=== PATIENT | female | born 1965 | race Caucasian/White ===

== ENCOUNTER 2018-03-01 19:54 | Emergency (ER) | payer BC ==
[~2018-03-01] VITALS: Ht 162.6 cm; Wt 74.8 kg
[~2018-03-01 19:54] MED LIST: BISA-155 PO; ONDA8TAB9 PO; POLY119P2 PO
[2018-03-01] MEDS ORDERED: CLONAZEPAM TAB 1MG PO (20:17)
[2018-03-01] MEDS ORDERED: MONTELUKAST TAB 10MG (20:17)
[2018-03-01] MEDS ORDERED: AMLODIPINE BESYLATE 10 MG PO (20:17)
[2018-03-01] MEDS ORDERED: LINZESS CAP 145MCG (20:17)
[2018-03-01] MEDS ORDERED: Lisinopril 10 Mg Tablet PO (20:18)
[2018-03-01] MEDS ORDERED: [UNRECOGNIZED DRUG - OTHER] SL (20:18)
[2018-03-01 20:31] LABS: BASOPHILS % (AUTO) 0.2 % (0-1); EOSINOPHILS # (AUTO) 0.2 X10'3 (0-0.9); EOSINOPHILS % (AUTO) 1.5 % (0-6); HEMATOCRIT 51.4 % (35.0-45.0); HEMOGLOBIN 17.8 g/dl (12.0-16.0); LYMPHOCYTES # (AUTO) 2.6 X10'3 (1.1-4.8); LYMPHOCYTES % (AUTO) 17.2 % (21-51); MEAN CORPUSCULAR HEMOGLOBIN 31.5 PG (27.0-31.0); MEAN CORPUSCULAR HGB CONC 34.5 % (33.0-36.5); MEAN CORPUSCULAR VOLUME 91.1 FL (78-98); MEAN PLATELET VOLUME 8.3 FL (7.4-10.4); MONOCYTES % (AUTO) 6.6 % (2-12); NEUTROPHILS # (AUTO) 11.2 X10'3 (1.8-7.7); NEUTROPHILS % (AUTO) 74.5 % (42-75); PLATELET COUNT 275 X10'3 (140-440); RED BLOOD COUNT 5.64 X10'6 (4.20-5.60); RED CELL DISTRIBUTION WIDTH 13.2 % (11.5-14.5)
[2018-03-01] MEDS ORDERED: ondansetron/PF 4mg/2ml inj IV ONE (20:40)
[2018-03-01 20:53] LABS: ALANINE AMINOTRANSFERASE 48 U/L (12-78); ALBUMIN 3.8 G/DL (3.4-5.0); ALBUMIN/GLOBULIN RATIO 1.1 (1.1-1.5); ALKALINE PHOSPHATASE 83 IU/L (46-116); ANION GAP 10 (8-16); ASPARTATE AMINO TRANSFERASE 27 U/L (10-37); BILIRUBIN,TOTAL 0.4 MG/DL (0.1-1.0); BLOOD UREA NITROGEN 5 MG/DL (7-18); BUN/CREATININE RATIO 5.3 (6.6-38.0); CALCIUM 9.3 MG/DL (8.5-10.1); CHLORIDE 101 MMOL/L (99-107); CREATININE 0.94 MG/DL (0.40-0.90); GLUCOSE 132 MG/DL (70-104); POTASSIUM 3.6 MMOL/L (3.5-5.1); SODIUM 137 MMOL/L (135-145); TOTAL CARBON DIOXIDE 25.8 MMOL/L (24-32); TOTAL PROTEIN 7.2 G/DL (6.4-8.2); eGFR 62 ML/MIN
[2018-03-01 21:02] LABS: PARTIAL THROMBOPLASTIN TIME 27 SECONDS (22-32); PROTHROMBIN TIME 10.6 SECONDS (9.0-12.0)
[2018-03-01] MEDS ORDERED: ketamine 10mg/ml 20ml inj 0 MG in normal saline 100ml IV soln 100 ML IV ONE (21:05)
[2018-03-01] MEDS ORDERED: ketamine 50 mg/ml 10ml vial IV ONE (21:15)
[2018-03-01] MEDS ORDERED: LORazepam 2 mg/ml vial IV ONE (22:30)
[2018-03-01] MEDS ORDERED: LIDOcaine 1% 30ml preserv. free vial IJ ONE (22:45)
[2018-03-01] MEDS ORDERED: fentaNYL/PF 50MCG/1 ML 2ML syringe IV STA (23:13)
[2018-03-02 00:34] LABS: APPEARANCE,CSF CLEAR; CSF RBC 2 /CU MM (0); CSF SUPERNATANT COLOR COLORLESS; CSF VOLUME 8 ML; TUBE# COUNTED 1
[2018-03-02 00:37] LABS: CSF WBC CT 0 /CU MM (0-5)
[2018-03-02 00:38] LABS: APPEARANCE,CSF CLEAR; CSF RBC 0 /CU MM (0); CSF SUPERNATANT COLOR COLORLESS; CSF VOLUME 8 ML; CSF WBC CT 0 /CU MM (0-5); TUBE# COUNTED 4
[2018-03-02 00:45] LABS: GLUCOSE,CSF 68 MG/DL (40-75)
[2018-03-02 00:46] LABS: TOTAL PROTEIN,CSF 40.3 MG/DL (15-45)
[2018-03-02] MEDS ORDERED: proCHLORperazine 10 MG/2 ml inj IV ONE (01:55)
[2018-03-02 02:20] VITALS: BP 121/83
== END 2018-03-02 02:22 | disposition home or self-care (01) ==
LOC: ER 19:55
DX: R51 Headache (principal); R07.9 Chest pain, unspecified; D72.829 Elevated white blood cell count, unspecified; F41.9 Anxiety disorder, unspecified; I10 Essential (primary) hypertension; Z79.899 Other long term (current) drug therapy
CPT/HCPCS: 36415; 70450; 71045; 80053; 82945; 84157; 84484; 85025; 85610; 85730; 87015; 87070; 89051; 93005; 96374; 96375; 99285; J0780; J2060; J2405; J3010; J3490

== ENCOUNTER 2018-03-04 10:36 | Day surgery (SDC) | payer BC ==
[2018-03-04] VITALS (10 sets, daily range): BP systolic 105–133; BP diastolic 64–86
[~2018-03-04] VITALS: Ht 162.6 cm; Wt 75.0 kg
[~2018-03-04 10:36] MED LIST changes: +AMLODIPINE BESYLATE 10 MG PO; +CLONAZEPAM TAB 1MG PO; +LINZESS CAP 145MCG; +Lisinopril 10 Mg Tablet PO; +MONTELUKAST TAB 10MG; +[UNRECOGNIZED DRUG - OTHER] SL
[2018-03-04] MEDS ORDERED: LORazepam 0.5 MG tablet PO PRN (11:10)
[2018-03-04] MEDS ORDERED: diphenhydrAMINE 25mg capsule PO PRN (11:10)
[2018-03-04] MEDS ORDERED: normal saline 1000ml 1,000 ML IV SCH (11:10)
[2018-03-04] MEDS ORDERED: ESCI10TA54 PO (11:49)
[2018-03-04] MEDS ORDERED: CETI10TA18 PO (11:49)
[2018-03-04] MEDS ORDERED: lidocaine 1%/epinephrine 1:100,000 injection 50ml vial ONE (12:50)
[2018-03-04] MEDS ORDERED: fentaNYL/PF 50MCG/1 ML 2ML syringe ONE (12:50)
[2018-03-04] MEDS ORDERED: iohexol 350MG/ML 100ml bottle IV ONE (12:50)
[2018-03-04] MEDS ORDERED: midazolam 2 mg/2 ml injection ONE (12:50)
[2018-03-04] MEDS ORDERED: OXAZEpam 15mg capsule PO PRN (14:00)
[2018-03-04] MEDS ORDERED: HYDROcodone/acetaminophen 10/325mg tab PO PRN (14:00)
[2018-03-04] MEDS ORDERED: HYDROcodone/acetaminophen 5mg/325mg tablet PO PRN (14:00)
[2018-03-04] MEDS ORDERED: proCHLORperazine 10 MG/2 ml inj IV PRN (14:00)
[2018-03-04] MEDS ORDERED: nitroGLYCERIN 0.4mg SUBLingual tab SL PRN (14:00)
[2018-03-04] MEDS ORDERED: ondansetron/PF 4mg/2ml inj IV PRN (14:00)
[2018-03-04] MEDS ORDERED: acetaminophen 325mg tablet PO PRN (14:00)
== END 2018-03-04 18:50 | disposition home or self-care (01) ==
LOC: SSTAY O 10:36
PROVIDERS: ATTEND Internal Medicine Interventional Cardiology
DX: I25.118 Atherosclerotic heart disease of native coronary artery with other forms of angina pectoris (principal); I10 Essential (primary) hypertension; E78.5 Hyperlipidemia, unspecified; F17.210 Nicotine dependence, cigarettes, uncomplicated; F41.8 Other specified anxiety disorders; Z98.51 Tubal ligation status; Z87.442 Personal history of urinary calculi; Z72.89 Other problems related to lifestyle; Z98.890 Other specified postprocedural states; Z79.899 Other long term (current) drug therapy; Z83.3 Family history of diabetes mellitus; Z82.49 Family history of ischemic heart disease and other diseases of the circulatory system
CPT/HCPCS: 93005; 93458; 99152; 99153; A6257; C1769; J1644; J2250; J3010; J3490; J7030; Q0163; Q9967; A4620

== ENCOUNTER 2019-05-20 15:45 | Emergency (ER) | payer BC, OTHER ==
[~2019-05-20] VITALS: Ht 162.6 cm; Wt 70.0 kg
[~2019-05-20 15:45] MED LIST changes: -BISA-155 PO; +CETI10TA18 PO; +ESCI10TA54 PO; -LINZESS CAP 145MCG; -ONDA8TAB9 PO; -POLY119P2 PO
[2019-05-20] MEDS ORDERED: BACL10TA PO (18:18)
[2019-05-20] MEDS ORDERED: ketorolac tromethamine 15mg/ml inj. IM ONE (18:20)
[2019-05-20] MEDS ORDERED: triamcinolone acetonide 40mg/ml inj IM ONE (18:20)
[2019-05-20 18:42] VITALS: BP 122/85
== END 2019-05-20 18:30 | disposition home or self-care (01) ==
LOC: ER 15:46
DX: M54.5 Low back pain (principal); I10 Essential (primary) hypertension; G89.29 Other chronic pain; F41.9 Anxiety disorder, unspecified; Z79.899 Other long term (current) drug therapy
CPT/HCPCS: 96372; 99283; J1885; J3301

== ENCOUNTER 2022-08-16 09:04 | Day surgery (SDC) | payer OTHER ==
[2022-08-14 11:52] LABS: BASOPHILS # (AUTO) 0.1 X10'3 (0-0.2); BASOPHILS % (AUTO) 0.9 % (0-1); EOSINOPHILS # (AUTO) 0.3 X10'3 (0-0.9); EOSINOPHILS % (AUTO) 3.6 % (0-6); LYMPHOCYTES # (AUTO) 3.7 X10'3 (1.1-4.8); LYMPHOCYTES % (AUTO) 38.8 % (21-51); MEAN CORPUSCULAR HEMOGLOBIN 31.2 PG (27.0-31.0); MEAN CORPUSCULAR HGB CONC 34.6 g/dL (33.0-36.5); MEAN CORPUSCULAR VOLUME 90.2 FL (78-98); MEAN PLATELET VOLUME 8.5 FL (7.4-10.4); MONOCYTES # (AUTO) 0.8 X10'3 (0-0.9); MONOCYTES % (AUTO) 8.7 % (2-12); NEUTROPHILS # (AUTO) 4.6 X10'3 (1.8-7.7); PRE OP HEMATOCRIT 47.9 % (35.0-45.0); PRE OP HEMOGLOBIN 16.6 g/dL (12.0-16.0); PRE OP PLATELET COUNT 230 X10'3 (140-440); RED BLOOD COUNT 5.31 X10'6 (4.20-5.60); RED CELL DISTRIBUTION WIDTH 13.1 % (11.5-14.5)
[2022-08-14 12:11] LABS: ALBUMIN 3.9 G/DL (3.4-5.0); ALBUMIN/GLOBULIN RATIO 1.2 (1.1-1.5); ALKALINE PHOSPHATASE 85 IU/L (46-116); BLOOD UREA NITROGEN 15 MG/DL (7-18); BUN/CREATININE RATIO 16.3 (6.6-38.0); CALCIUM 9.3 MG/DL (8.5-10.1); CHLORIDE 104 MMOL/L (99-107); CREATININE 0.92 MG/DL (0.40-0.90); PRE OP ALT 22 U/L (30-65); PRE OP ANION GAP 9 (8-16); PRE OP AST 17 U/L (10-37); PRE OP BILIRUB, TOTAL 0.4 MG/DL (0.0-1.0); PRE OP GLUCOSE 126 MG/DL (70-104); PRE OP POTASSIUM 4.1 MMOL/L (3.4-5.1); PRE OP SODIUM 138 MMOL/L (135-145); TOTAL CARBON DIOXIDE 24.8 MMOL/L (24-32); TOTAL PROTEIN 7.1 G/DL (6.4-8.2); eGFR 63 ML/MIN
[~2022-08-16] VITALS: Ht 160 cm; Wt 66.0 kg
[~2022-08-16 09:04] MED LIST changes: -AMLODIPINE BESYLATE 10 MG PO; -CETI10TA18 PO; -CLONAZEPAM TAB 1MG PO; -ESCI10TA54 PO; +HYDR-3972 PO; -Lisinopril 10 Mg Tablet PO; -MONTELUKAST TAB 10MG; -[UNRECOGNIZED DRUG - OTHER] SL; +acetaminophen 325mg tablet PO ONE; +albuterol 2.5 MG/3 ML nebule NEB ONE; +ceFAZolin inj. 2,000 MG in dextrose 5%-water 100 ML IV ONE; +celeCOXIB 100mg capsule PO ONE; +famotidine 20mg tablet PO ONE; +gabapentin 300mg capsule PO ONE; +metoclopramide 5 mg/ml inj IV ONE; +oxyCODONE SR 10mg (sust. release) tab -2 tabs (20mg) PO ONE; +ringers solution, lacted 1,000 ML IV SCH; +tranexamic acid inj. 1,000 MG in normal saline IV soln 100ML IV ONE; +vancomycin/NS 1 GM in NS 250 ML IV ONE
[2022-08-16] MEDS ORDERED: BUPIVAcaine 0.5% inj/PF 0 ML ONE (13:38)
[2022-08-16] MEDS ORDERED: sevoflurane 250ml liquid IH ONE (14:01)
[2022-08-16] MEDS ORDERED: fentaNYL/PF 50MCG/1 ML 2ML syringe ONE (14:01)
[2022-08-16] MEDS ORDERED: midazolam 1 mg/ML 2ml injection ONE (14:01)
[2022-08-16] MEDS ORDERED: morphine 4 MG/ML inj SYRINge IV PRN (14:55)
[2022-08-16] MEDS ORDERED: meperidine/PF 25mg/ml syringe IV PRN ×3 (14:55)
[2022-08-16] MEDS ORDERED: ondansetron/PF 4mg/2ml inj IV PRN (14:55)
[2022-08-16] MEDS ORDERED: morphine 2 MG/ML inj. syringe IV PRN (14:55)
[2022-08-16] MEDS ORDERED: ringers solution, lacted 1,000 ML IV SCH (14:55)
[2022-08-16] MEDS ORDERED: proCHLORperazine 10 MG/2 ml inj IV PRN (14:55)
[2022-08-16 15:08] VITALS: BP 142/92
[2022-08-16] MEDS ORDERED: ROPIVAcaine 0.5% (5mg/ml) 30ml vial ONE (15:08)
[2022-08-16] MEDS ORDERED: propofol inj 20 ML IV ONE (15:08)
[2022-08-16 15:09] VITALS: BP 142/92
[2022-08-16 15:12] VITALS: BP 128/78
--- NOTE | 2022-08-16 15:12 | NUR ---
Received from OR via [facility], accompanied by Anesthesiologist and report given by TORRES Anesthesiologist. PATIENT WAKING UP, DENIES PAIN, V/S WNL, 20G TO RIGHT FOREARM, LEFT ARM DRESSING C/D/I with ICE PACK AND ARM SLING. Addendum: 08/16/22 at 1550 by Ted Ruiz RN Amended: Links added.
[2022-08-16 15:20] VITALS: BP 151/84
[2022-08-16 15:30] VITALS: BP 138/82
[2022-08-16 15:40] VITALS: BP 151/92
--- NOTE | 2022-08-16 15:57 | NUR ---
ALL DISCHARGE CRITERIA HAS BEEN MET. VSS, PAIN AT A TOLERABLE LEVEL, VOIDING AND ABLE TO SAFELY AMBULATE AND TRANSFER SELF. IV TAKEN OUT WITHOUT ANY COMPLICATIONS. ALL DISCHARGE INSTRUCTIONS COVERED WITH PATIENT AND ALL QUESTIONS ANSWERED. PATIENT TAKEN OUT VIA WHEELCHAIR WITH ALL BELONGINGS TO PERSONAL VEHICLE WHERE FAMILY DROVE PATIENT HOME. Addendum: 08/16/22 at 1601 by Ted Ruiz RN Amended: Links added.
== END 2022-08-16 15:57 | disposition home or self-care (01) ==
LOC: PAS 09:04
PROVIDERS: ATTEND Orthopaedic Surgery
DX: S52.552A Other extraarticular fracture of lower end of left radius, initial encounter for closed fracture (principal); X58.XXXA Exposure to other specified factors, initial encounter; Y93.89 Activity, other specified; Y92.89 Other specified places as the place of occurrence of the external cause; Y99.8 Other external cause status; Z79.899 Other long term (current) drug therapy; Z98.51 Tubal ligation status; F17.210 Nicotine dependence, cigarettes, uncomplicated; Z98.890 Other specified postprocedural states; G89.18 Other acute postprocedural pain
CPT/HCPCS: 25607; 36415; 64417; 80053; 82948; 85025; 93005; A6222; C1713; J0690; J2250; J2704; J2765; J2795; J3010; J3370; J3490; J7030; J7060; J7120; Z7506; Z7508; Z7512; A4565; A4618; A6446; A6449; A7000; S0020

== ENCOUNTER 2024-03-09 08:00 | Emergency (ER) | payer BC, OTHER ==
[~2024-03-09] VITALS: Ht 160 cm; Wt 62.5 kg
[~2024-03-09 08:00] MED LIST changes: -acetaminophen 325mg tablet PO ONE; -albuterol 2.5 MG/3 ML nebule NEB ONE; -ceFAZolin inj. 2,000 MG in dextrose 5%-water 100 ML IV ONE; -celeCOXIB 100mg capsule PO ONE; -famotidine 20mg tablet PO ONE; -gabapentin 300mg capsule PO ONE; -metoclopramide 5 mg/ml inj IV ONE; -oxyCODONE SR 10mg (sust. release) tab -2 tabs (20mg) PO ONE; -ringers solution, lacted 1,000 ML IV SCH; -tranexamic acid inj. 1,000 MG in normal saline IV soln 100ML IV ONE; -vancomycin/NS 1 GM in NS 250 ML IV ONE
[2024-03-09] MEDS: ondansetron 4mg rapidly disintigrating tab PO ONE (08:23)
[2024-03-09 08:26] LABS: BILIRUBIN,URINE NEGATIVE (Neg); CLARITY,URINE CLEAR (Clear); COLOR,URINE YELLOW (Yellow); GLUCOSE, URINE NEGATIVE (Neg); KETONES,URINE NEGATIVE (Neg); LEUKOCYTE ESTERASE ,URINE NEGATIVE (Neg); NITRITES, URINE NEGATIVE (Neg); OCCULT BLOOD,URINE NEGATIVE (Neg); PROTEIN,URINE NEGATIVE (Neg)
[2024-03-09 08:32] LABS: UA COLLECTION TYPE CLN CATCH MIDSTREAM
[2024-03-09 09:33] LABS: ALANINE AMINOTRANSFERASE 14 U/L (12-78); ALBUMIN 3.8 G/DL (3.4-5.0); ALBUMIN/GLOBULIN RATIO 1.2 (1.1-1.5); ALKALINE PHOSPHATASE 73 IU/L (46-116); AMYLASE 56 U/L (25-115); ANION GAP 11 (8-16); ASPARTATE AMINO TRANSFERASE 11 U/L (10-37); BILIRUBIN,TOTAL 0.3 MG/DL (0.1-1.0); BLOOD UREA NITROGEN 9 MG/DL (7-18); BUN/CREATININE RATIO 8.3 (10.0-20.0); CALCIUM 8.7 MG/DL (8.5-10.1); CHLORIDE 103 MMOL/L (99-107); CREATININE 1.09 MG/DL (0.40-0.90); GLUCOSE 127 MG/DL (70-104); LIPASE 44 U/L (16-77); POTASSIUM 4.3 MMOL/L (3.5-5.1); SODIUM 138 MMOL/L (135-145); TOTAL CARBON DIOXIDE 24.2 MMOL/L (24-32); TOTAL PROTEIN 6.9 G/DL (6.4-8.2); eCRCL 46 ML/MIN; eGFR 51 ML/MIN
[2024-03-09 10:33] LABS: BASOPHILS % (AUTO) 0.8 % (0-1); EOSINOPHILS # (AUTO) 0.2 X10'3 (0-0.9); EOSINOPHILS % (AUTO) 3.3 % (0-6); HEMATOCRIT 45.9 % (35.0-45.0); HEMOGLOBIN 15.9 g/dl (12.0-16.0); LYMPHOCYTES # (AUTO) 2.8 X10'3 (1.1-4.8); LYMPHOCYTES % (AUTO) 42.6 % (21-51); MEAN CORPUSCULAR HGB CONC 34.6 g/dL (33.0-36.5); MEAN CORPUSCULAR VOLUME 92.6 FL (78-98); MEAN PLATELET VOLUME 8.1 FL (7.4-10.4); MONOCYTES # (AUTO) 0.5 X10'3 (0-0.9); MONOCYTES % (AUTO) 7.4 % (2-12); NEUTROPHILS % (AUTO) 45.9 % (42-75); PLATELET COUNT 236 X10'3 (140-440); RED BLOOD COUNT 4.96 X10'6 (4.20-5.60); RED CELL DISTRIBUTION WIDTH 13.4 % (11.5-14.5); WHITE BLOOD COUNT 6.5 X10'3 (4.5-11.0)
[2024-03-09] MEDS ORDERED: SIME80TA15 PO (11:42)
[2024-03-09] MEDS ORDERED: DICY20TA17 PO (11:42)
[2024-03-09 12:02] VITALS: BP 147/68; PULSE 72; RESP 16; TEMP 97.9; O2SAT 97
== END 2024-03-09 12:05 | disposition home or self-care (01) ==
LOC: ER 08:01
DX: R10.9 Unspecified abdominal pain (principal); R11.2 Nausea with vomiting, unspecified; A74.9 Chlamydial infection, unspecified; I10 Essential (primary) hypertension; G89.29 Other chronic pain; M54.9 Dorsalgia, unspecified; F41.9 Anxiety disorder, unspecified; F17.200 Nicotine dependence, unspecified, uncomplicated; Z79.1 Long term (current) use of non-steroidal anti-inflammatories (NSAID); Z79.899 Other long term (current) drug therapy
CPT/HCPCS: 36415; 76700; 80053; 81003; 82150; 83690; 85025; 93005; 99284